=== PATIENT | male | born 1950 | race African-American/Black ===

== ENCOUNTER 2023-09-19 18:30 | Emergency (ER) | payer MEDICARE, SELFPAY ==
--- NOTE | ~2023-09-19 | XR_ITS ---
EXAM: XR hip LT 2V w AP pelvis DATE: 09/19/2023 20:17 HISTORY: fall . COMPARISON: None available. FINDINGS: Decreased mineralization. Uncomplicated appearing left proximal femoral hardware. Partiall y visualized right femoral hardware. No acute fracture or dislocation. Degenerative changes in the patrick mbar spine and bilateral hips. Old healed intertrochanteric fractures. Vascular calcifications. IMPRESSION: No acute osseous finding in the pelvis or left hip. No radiographic evidence of hardware- related complication in the left hip. Reviewed, dictated and finalized at location K. MACHINE OPERATOR IMPRESSION: No acute osseous finding in the pelvis or left hip. No radiographic evidence of hardware-related complication in the left hip.
[2023-09-19 18:39] VITALS: BP 161/63; PULSE 78; RESP 20; TEMP 36.8; O2SAT 100
== END 2023-09-19 22:00 | disposition left against medical advice (07) ==
PROVIDERS: Emergency Provider Emergency Medicine; PCP Physician Assistant
DX: M25.552 Pain in left hip (principal)
CPT/HCPCS: 73502; 99199

== ENCOUNTER 2024-03-07 12:55 | Outpatient (CLI) | payer MEDICARE, SELFPAY ==
--- NOTE | ~2024-03-07 | XR_ITS ---
XR foot LT min 3V Ordering provider: Lux Humphries DO History: . LT FOOT PAIN ON AND OFF X 3-4 MONTHS, NKI . Comparison: None. FINDINGS: BONES: No acute fracture or dislocation. Osteopenia JOINT SPACES: Narrowing of the distal interphalangeal joints.. No tarsal coalition. SOFT TISSUES: Normal. IMPRESSION: No acute osseous abnormality left foot. Reviewed, dictated and finalized at location A.
== END 2024-03-07 12:56 | disposition home or self-care (01) ==
PROVIDERS: PCP Internal Medicine; Visit Provider Internal Medicine
DX: M79.672 Pain in left foot (principal)
CPT/HCPCS: 73630

== ENCOUNTER 2024-05-05 03:12 | Emergency (ER) | payer MEDICARE, SELFPAY ==
--- NOTE | ~2024-05-05 | XR_ITS ---
Clinical Indication: Shortness of breath PA and lateral views of the chest: Comparison: None Findings: There is hazy bibasilar and perihilar airspace disease, most compatible mild pulmonary ingris a. Suspected underlying COPD with focal linear left upper lobe scarring. No pleural effusions. Cardio mediastinal silhouette is within normal limits. Bones and soft tissues are unremarkable. Impression: Probable mild bibasilar pulmonary edema. Underlying COPD. Reviewed, dictated and finalized at location . Impression: Probable mild bibasilar pulmonary edema. Underlying COPD.
[2024-05-05 03:12] VITALS: BP 154/87; PULSE 75; RESP 25; TEMP 36.8; O2SAT 98
[2024-05-05 03:16] VITALS: PULSE 88; O2SAT 98
--- NOTE | 2024-05-05 03:16 | ECG_ITS ---
Test Date: 2024-05-05 03:25:26 Measurements Intervals [employer] Rate: 83 P: 62 NV: 150 QRS: 30 QRSD: 83 T: 136 QT: 377 QTc: 444 Interpretive Statements SINUS RHYTHM POSSIBLE LEFT ATRIAL ENLARGEMENT ST DEVIATION AND MODERATE T-WAVE ABNORMALITY, CONSIDER LAT/HIGH LAT ISCHEMIA BASELINE ARTIFACT- III, V2, V4-V6 ABNORMAL ECG No previous ECG available for comparison Electronically Signed On 05-05-2024 06:54:15 CDT by Willis An D.O.
[2024-05-05 03:23] VITALS: O2SAT 98
[2024-05-05 03:25] LABS: Basophils Absolute Auto 0.1 K/mm3 (0.0-0.1); Basophils Percent Auto 0.7 % (0.2-1.2); Eosinophils Absolute Auto 0.3 K/mm3 (0-0.3); Eosinophils Percent Auto 3.6 % (0-4.4); Hematocrit 40.7 % (42.0-52.0); Hemoglobin 13.2 g/dL (14.0-18.0); Immature Granulocyte Absolute 0.01 K/mm3 (0.00-0.031); Immature Granulocyte Percent A 0.1 % (0-0.5); Lymphocytes Absolute Auto 1.95 K/mm3 (0.9-3.2); Lymphocytes Percent Auto 25.4 % (18.3-44.2); Mean Corpuscular HGB Conc 32.4 g/dl (32-36); Mean Corpuscular Hemoglobin 28.8 pg (26-34); Mean Corpuscular Volume 88.9 fl (80-100); Monocytes Absolute Auto 0.5 K/mm3 (0.1-0.6); Monocytes Percent Auto 6.8 % (2.6-8.5); Neutrophils Absolute Auto 4.9 K/mm3 (1.3-6.7); Neutrophils Percent Auto 63.4 % (45.5-73.1); Platelet Count Result 228 k/mm3 (150-375); Red Blood Count 4.58 M/mm3 (4.6-6.20); Red Cell Distribution Width 15.5 % (11.5-14.5); White Blood Count 7.7 K/mm3 (4.5-10.0)
[2024-05-05 03:34] LABS: Alanine Aminotransferase 15 U/L (6-50); Albumin Level 4.1 g/dL (3.5-5.1); Alkaline Phosphatase 56 U/L (38-126); Anion Gap 11 mmol/L (4-12); Aspartate Amino Transferase 29 U/L (17-59); Bilirubin,Total 0.2 mg/dL (0.2-1.3); Blood Urea Nitrogen 14 mg/dL (9-20); Calcium 9.4 mg/dL (8.4-10.2); Carbon Dioxide 25 mmol/L (22-30); Chloride 104 mmol/L (98-107); Estimated CRCL calculation 42 ml/min; Estimated Glomerular Filt Rate > 60; Glucose 113 mg/dL (65-110); Potassium 4.2 mmol/L (3.4-5.0); Sodium 140 mmol/L (137-145)
--- NOTE | 2024-05-05 04:55 | ED.GENADULT ---
HPI - General Adult General Chief complaint: Shortness of Breath/Dyspnea Stated complaint: short of breath Time Seen by Provider: 05/05/24 04:22 History of Present Illness HPI narrative: 73-year-old male presents emergency department with history of COPD presenting emergency department for evaluation for shortness of breath. Patient is not on oxygen at home. Patient states he has been on is albuterol for a few months but has not required albuterol. Patient states he did have some shortness of breath today but without a albuterol he is shortness breath worsened. Patient did call EMS and EMS did treat him with a breathing treatment. Upon arrival emergency department patient states he does feel improved. At time of evaluation patient has no current shortness of breath and is saturating well on room air. Related Data Home Medications Medication Instructions Recorded Confirmed aspirin 325 mg tablet 325 mg PO BID 03/01/23 01/03/24 Allergies Allergy/AdvReac Type Severity Reaction Status Date / Time esomeprazole [From Nexium] Allergy Mild Unknown Verified 01/03/24 11:27 Review of Systems Review of Systems: All systems reviewed & are unremarkable except as noted in HPI and below PMFSH Past Medical History Medical History COPD (chronic obstructive pulmonary disease) Heart disease Hypertension Seizures Surgical History Surgical History History of hip surgery Family History Family History Father Hypertension Alcoholism Mother Alcoholism Hypertension Depression Heart disease Sibling Alcoholism Asthma Hypertension Social History Social History Smoking packs per day: 1 Smoking cigarettes per day: 20.0 Smoking status: Current every day smoker Alcohol intake: never Substance use: unknown Lack of Transportation: No Lack of Food: Never True Current Housing: I Have Housing Concerned About Future Housing: No Difficulty Paying Gas/Electric Bills: No Difficulty Paying for Meds: No Currently Unemployed: No Education: High School Diploma/GED Difficulty w/ Childcare or Family Care: No Exam Narrative: APPEARANCE: Well appearing, no pain, no distress, well-nourished. HEAD: normocephalic, atraumatic. EYES: PERRLA/EOMI, conjunctivae clear. NOSE: Normal no drainage EARS:TMS clear with good light reflex. THROAT: Pharynx clear, no exudate. NECK: Supple. No adenopathy, no masses. RESPIRATORY: Airway patent, respirations nonlabored. Clear to auscultation bilaterally, no rales, rhonchi, wheezing. CARDIOVASCULAR: Regular rate and rhythm without murmurs rubs or gallops. ABDOMINAL: Soft, nontender, nondistended, normal bowel sounds MUSCULOSKELETAL: Moves all extremities. Strength/ROM intact, No edema, No calf tenderness. NEURO: Alert. Cranial nerves II through XII intact. Good gait. Good coordination SKIN: Warm, dry. Normal Color Course Course Emergency Course: Patient did feel improved with treatment. Vital Signs Vital signs: Vital Signs Temperature 98.3 F 05/05/24 03:12 Pulse Rate 75 05/05/24 03:12 Respiratory Rate 25 H 05/05/24 03:12 Blood Pressure 154/87 H 05/05/24 03:12 Pulse Oximetry 98 05/05/24 03:12 Oxygen Delivery Room Air 05/05/24 03:12 Temperature 98 F 05/05/24 05:18 Pulse Rate 88 05/05/24 05:18 Respiratory Rate 17 05/05/24 05:18 Blood Pressure 134/76 05/05/24 05:18 Pulse Oximetry 96 05/05/24 05:18 Oxygen Delivery Room Air 05/05/24 03:23 Medical Decision Making MDM Narrative Medical decision making narrative: 73-year-old male presenting ED for evaluation for shortness of breath. Patient states he does feel improved with treatment. Patient is afebrile with no leukocytosis and a stable hemog
[2024-05-05] MEDS: AMOXICILLIN/CLAVULANATE K 875-125 MG TAB 1 TABLET PO (05:15)
[2024-05-05] MEDS: AZITHROMYCIN 250 MG TABLET 500 MG PO (05:15)
[2024-05-05 05:18] VITALS: BP 134/76; PULSE 88; RESP 17; TEMP 36.6; O2SAT 96
== END 2024-05-05 05:19 | disposition home or self-care (01) ==
PROVIDERS: Emergency Provider Emergency Medicine; PCP Internal Medicine
DX: J44.1 Chronic obstructive pulmonary disease with (acute) exacerbation (principal); J18.9 Pneumonia, unspecified organism; I11.9 Hypertensive heart disease without heart failure; F17.210 Nicotine dependence, cigarettes, uncomplicated; Z79.82 Long term (current) use of aspirin; Z79.899 Other long term (current) drug therapy; R94.31 Abnormal electrocardiogram [ECG] [EKG]
CPT/HCPCS: 36415; 71046; 80053; 85025; 93005; 99284; A9270